=== PATIENT | female | born 1950 | race Caucasian/White ===

== ENCOUNTER 2016-09-12 12:48 | Outpatient (CLI) ==
[2016-09-12 15:42] LABS: BASOPHILS % (AUTO) 0.4 % (0.0-3.0); EOSINOPHILS # (AUTO) 0.2 K/ul (0.0-0.7); EOSINOPHILS % (AUTO) 2.3 % (0.0-7.0); HEMATOCRIT 43.7 % (37.0-47.0); HEMOGLOBIN 14.6 g/dl (12.0-16.0); IMMATURE GRANULOCYTE % (AUTO) 0.4 % (0.0-5.0); LYMPHOCYTES # (AUTO) 1.9 K/uL (0.60-3.4); LYMPHOCYTES % (AUTO) 24.9 (10.0-50.0); MEAN CORPUSCULAR HEMOGLOBIN 28.8 pg (27.0-31.0); MEAN CORPUSCULAR HGB CONC 33.4 (31.8-35.4); MEAN CORPUSCULAR VOLUME 86.2 fl (81.0-99.0); MONOCYTES # (AUTO) 0.8 K/uL (0.4-2.0); MONOCYTES % (AUTO) 10.1 (0-10); NEUTROPHILS # (AUTO) 4.6 K/ul (2.0-6.9); NEUTROPHILS % (AUTO) 61.9; PLATELET COUNT 268 10^3/uL (140-440); RED BLOOD COUNT 5.07 10^6/ul (4.20-5.40); WHITE BLOOD COUNT 7.42 K/ul (4.6-10.2)
[2016-09-12 16:21] LABS: ALBUMIN 3.6 g/dL (3.4-5.0); ALBUMIN/GLOBULIN RATIO 1.03; BILIRUBIN,TOTAL 0.36 mg/dL (0.00-1.20); CALCIUM 9.8 mg/dL (8.2-10.2); CHOL/HDL RATIO 4.3 (4.5-5.5); CREATININE 0.7 mg/dL (0.60-1.30); TOTAL PROTEIN 7.1 g/dL (5.8-8.1)
== END 2016-09-12 12:49 | disposition home or self-care (01) ==
LOC: LAB 12:48
PROVIDERS: ATTEND Emergency Medicine
DX: J40 Bronchitis, not specified as acute or chronic (principal); G25.0 Essential tremor; E66.9 Obesity, unspecified
CPT/HCPCS: 36415; 80053; 80061; 84443; 85025

== ENCOUNTER 2016-09-18 08:31 | Outpatient (CLI) ==
--- NOTE | 2016-09-18 09:39 | CT ---
EXAM: CT of the chest without contrast History: Bronchitis. Technique: Multiplanar CT images through the chest were obtained without the administration of IV c ontrast Findings: Coronary calcifications. Heart size is normal. No pericardial effusion. No pathologica lly enlarged thoracic lymph nodes. Great vessels are unremarkable. No consolidation. No pleural f luid and no pneumothorax. No suspicious lung masses or lung nodules. Within the visualized upper abdomen, no acute findings. No acute osseous abnormalities. Impression: 1. No acute intrathoracic process. 2. Coronary artery disease.
== END 2016-09-18 08:32 | disposition home or self-care (01) ==
LOC: RAD 08:31
PROVIDERS: ATTEND Emergency Medicine
DX: Z12.31 Encounter for screening mammogram for malignant neoplasm of breast (principal); J40 Bronchitis, not specified as acute or chronic; F17.200 Nicotine dependence, unspecified, uncomplicated

== ENCOUNTER 2016-10-01 12:20 | Outpatient (CLI) | payer OTHER | END 2016-10-01 12:21 | disposition home or self-care (01) | LOC: CAR 12:20 | PROVIDERS: ATTEND Emergency Medicine | DX: J40 Bronchitis, not specified as acute or chronic (principal) ==

== ENCOUNTER 2017-02-07 12:57 | Outpatient (CLI) ==
[2017-02-07 13:33] LABS: BASOPHILS % (AUTO) 0.4 % (0.0-3.0); EOSINOPHILS # (AUTO) 0.1 K/ul (0.0-0.7); EOSINOPHILS % (AUTO) 1.3 % (0.0-7.0); HEMATOCRIT 43.5 % (37.0-47.0); IMMATURE GRANULOCYTE % (AUTO) 0.3 % (0.0-5.0); LYMPHOCYTES % (AUTO) 26.1 (10.0-50.0); MEAN CORPUSCULAR HEMOGLOBIN 29.7 pg (27.0-31.0); MEAN CORPUSCULAR HGB CONC 34.5 (31.8-35.4); MEAN CORPUSCULAR VOLUME 86.1 fl (81.0-99.0); MONOCYTES # (AUTO) 0.6 K/uL (0.4-2.0); NEUTROPHILS # (AUTO) 4.9 K/ul (2.0-6.9); NEUTROPHILS % (AUTO) 63.9; PLATELET COUNT 259 10^3/uL (140-440); RED BLOOD COUNT 5.05 10^6/ul (4.20-5.40); WHITE BLOOD COUNT 7.59 K/ul (4.6-10.2)
[2017-02-07 14:07] LABS: ALBUMIN 3.4 g/dL (3.4-5.0); ALBUMIN/GLOBULIN RATIO 0.83; ANION GAP 10.9; BILIRUBIN,TOTAL 0.6 mg/dL (0.00-1.20); BUN/CREATININE RATIO 17.14; CALCIUM 10.2 mg/dL (8.2-10.2); CHOL/HDL RATIO 3.1 (4.5-5.5); CREATININE 0.7 mg/dL (0.60-1.30); PHOSPHORUS 3.5 mg/dL (2.8-4.1); POTASSIUM 3.9 mmol/L (3.5-5.10); TOTAL PROTEIN 7.5 g/dL (5.8-8.1)
== END 2017-02-07 12:58 | disposition home or self-care (01) ==
LOC: LAB 12:57
PROVIDERS: ATTEND Emergency Medicine
DX: G25.0 Essential tremor (principal); M47.26 Other spondylosis with radiculopathy, lumbar region; E66.9 Obesity, unspecified; E78.5 Hyperlipidemia, unspecified
CPT/HCPCS: 36415; 80053; 80061; 84100; 84443; 85025

== ENCOUNTER 2017-06-06 07:37 | Outpatient (CLI) ==
--- NOTE | 2017-06-06 09:34 | MRI ---
EXAM: MRI left wrist without contrast. HISTORY: Knot on left wrist. Marked. Diagnosed ganglion left wrist. Questionable left wrist surge ry years ago. TECHNIQUE: Using a local extremity coil on a high field strength magnet multiplanar multisequence ma gnet resonance imaging was attempted of the left wrist without intravenous or intra-articular gadolin ium contrast. A marker was placed over the volar radial aspect of the left wrist at the radiocarpal j oint space in the patient's reported area of symptomatology. Overall examination is of markedly limited diagnostic quality secondary to decreased [id number]-cj-mcyrm/ resolution as well as extensive motion degradation despite repeat imaging.. FINDINGS: I do not have prior radiographs of the left wrist available for comparison at the time of this dictation. The alignment of the left wrist shows no dislocation . There is a radial subluxation first metacarpa l with respect to the trapezium. Markedly severe degenerative arthrosis/osteoarthrosis scaphoid trap ezium trapezoid articulation as well as first carpometacarpal joint. Specifically over the first car pometacarpal joint there is extensive joint centered bone remodeling with osteophyte formation and shawn int centered bone marrow edema. Osteoarthrosis radiocarpal joint as well. Question tiny fibrous/car tilaginous lesion capitate. Areas of subchondral remodeling/edema/cyst formation over the proximal l unate and triquetrum. The central triangular fibrocartilage disc thinned centrally over the more radi al side. This may be degenerative. A marker placed over the volar/radial sided soft tissues at the radiocarpal joint space level. Direc tly underlying there is dark T1 bright T2 signal intensity lobulated focus lying 3 mm deep to the ski n surface with extension deep to the level of the radiocarpal joint space level. This area measures upwards of 20 mm in length extending proximal and approximately 11 mm transverse by 11 mm deep. The carpal tunnel and its contents as well as overlying flexor retinaculum within normal limit in appeara nce. Extensor compartments I - intact without overt tenosynovitis.. IMPRESSION: Overall examination is of markedly limited diagnostic quality secondary to decreased sig [id number]/resolution as well as extensive motion degradation despite repeat imaging. Marker over the volar/radial sided soft tissues at the radiocarpal joint space level. Directly under lying 20 mm dark T1 bright T2 signal intensity lobulated focus. Question synovial/ganglion cyst(s). Questionable extension to the radiocarpal joint space level. Recommend further characterization with color Doppler sonography if aspiration/resection is clinically indicated. Radial subluxation first metacarpal with respect to the trapezium with markedly severe end-stage dege nerative arthrosis/osteoarthrosis. Involvement of the scaphoid trapezium trapezoid articulation as w ell. Osteoarthrosis radiocarpal joint as well. Thinned central more radial sided attachment of the triangular fibrocartilage disc. Question degener ative. Recommendation is obtainment and correlation with plain film radiographs of the left wrist as none ar e available for comparison at the time of this dictation.
== END 2017-06-06 07:38 | disposition home or self-care (01) ==
LOC: RAD 07:37
PROVIDERS: ATTEND Emergency Medicine
DX: M67.432 Ganglion, left wrist (principal)

== ENCOUNTER 2017-08-26 09:04 | Outpatient (CLI) | END 2017-08-26 09:05 | disposition home or self-care (01) | LOC: RHC-LAB 09:04 | PROVIDERS: ATTEND Emergency Medicine | DX: G25.0 Essential tremor (principal); E66.9 Obesity, unspecified; E78.5 Hyperlipidemia, unspecified; M47.26 Other spondylosis with radiculopathy, lumbar region | CPT/HCPCS: 36415; 80053; 80061; 84443; 85025 ==

== ENCOUNTER 2017-11-25 08:35 | Outpatient (CLI) ==
--- NOTE | 2017-11-25 10:04 | DI ---
EXAM: Two views of the chest. History: Smoker. Comparison: Heart size is normal. No focal consolidation. No appreciable pleural fluid and no pneum othorax. No acute osseous abnormalities. Impression: No acute cardiopulmonary process
--- NOTE | 2017-11-26 10:28 | MAMMO ---
EXAM: Right digital screening mammogram (2-D and 3-D) History: Screening, history of left mastectomy Comparison: Right mammogram 09/18/2016 Findings: MLO and CC views of the right breast demonstrate scattered fibroglandular breast parenchyma . Stable benign right breast calcifications and stable benign right breast nodular densities. No de veloping masses and no suspicious microcalcifications. CAD was reviewed by the radiologist. Tomosynt hesis was performed. Impression: Stable benign right mammogram. Recommend followup routine screening mammography in 1 ye ar. BIRADS 2
== END 2017-11-25 08:36 | disposition home or self-care (01) ==
LOC: RAD 08:35
PROVIDERS: ATTEND Internal Medicine
DX: Z12.31 Encounter for screening mammogram for malignant neoplasm of breast (principal); E78.5 Hyperlipidemia, unspecified; E55.9 Vitamin D deficiency, unspecified; F17.210 Nicotine dependence, cigarettes, uncomplicated; Z90.12 Acquired absence of left breast and nipple; I10 Essential (primary) hypertension
CPT/HCPCS: 36415; 80053; 80061; 82306; 83036; 84439; 84443; 85025

== ENCOUNTER 2018-08-17 08:16 | Outpatient (CLI) ==
--- NOTE | 2018-08-17 09:12 | DI ---
EXAM: Two views of the chest. History: Cough. Comparison: Chest radiograph 11/25/2017 Findings: Heart size is upper limits of normal. Central bronchial wall thickening. No focal consol idation. No appreciable pleural fluid and no pneumothorax. No acute osseous abnormalities. Impression: Central bronchial wall thickening but no consolidated pneumonia.
--- NOTE | 2018-08-17 10:03 | CT ---
EXAM: CT of the lumbar spine without contrast History: Lower back pain. Technique: Multiplanar CT images through the lumbar spine were obtained without the administration o f IV contrast Findings: The visualized lung bases are clear. Atherosclerotic vascular calcifications are mild. C olonic diverticulosis. No acute fracture or subluxation of the lumbar spine. Mild to moderate multilevel disc space narrowi ng with endplate sclerosis and a few prominent osteophytes. Six lumbar type vertebral bodies. T12-L1: No significant bony central canal stenosis or bony neural foraminal narrowing. L1-L2: No significant bony central canal stenosis or bony neural foraminal narrowing. L2-L3: No significant bony central canal stenosis or bony neural foraminal narrowing. L3-L4: No significant bony central canal stenosis or bony neural foraminal narrowing. L4-L5: No significant bony central canal stenosis or bony neural foraminal narrowing. L5, L6: No significant bony central canal stenosis. Right lateral disc protrusion effacing the left lateral recess. There may be compromise of the right exiting nerve root. Moderate bilateral bony n eural foraminal narrowing secondary to ligamentous and facet hypertrophy. L6-S1: No significant bony central canal stenosis or bony neural foraminal narrowing. Impression: 1. No acute osseous abnormality of the lumbar spine. 2. Level by level analysis as detailed above and no significant at L5-L6 with possible compromise of the right exiting nerve root. Recommend further evaluation with MRI of the lumbar spine. 3. Colonic diverticulosis
--- NOTE | 2018-08-17 11:27 | MRI ---
EXAM: MRI of the left shoulder without contrast COMPARISON: Chest radiographs 08/17/2018. HISTORY: Bruising of the left shoulder. No known injury. TECHNIQUE: Multiplanar noncontrast MR images of the left shoulder were acquired using a 1.2 [place] ma gnet. The submitted images are moderately limited by patient motion artifact, overall limiting anato alverto detail. The axial proton density sequence was repeated. FINDINGS: No recent radiographs of the left shoulder are available for comparison and radiographic c orrelation is recommended. There is marked supraspinatus, infraspinatus and subscapularis tendinosis. Marked thinning and artic ular surface irregularity of the insertional fibers of the supraspinatus anteriorly measuring 0.9 x 0 .8 cm extent consistent with a tear with near full-thickness and suspected irregular full-thickness c omponents. Fluid in the overlying subacromial/subdeltoid bursa. Less extensive partial-thickness/ri m rent tear involving the more posterior insertional fibers of the infraspinatus as well as bursal chin rface fraying/partial-thickness bursal surface tear more proximally. The critical zone through the l evel of the acromion. Thinning of the distal subscapularis related to a partial-thickness tear with intact fibers identified. Moderate atrophy of the supraspinatus and infraspinatus with low-level int ramuscular edema involving the supraspinatus. Reactive marrow edema with degenerative spurring along the greater tuberosity attachment rotator cuff. Limited assessment glenoid labrum on this non arthrographic, motion limited study. Hyperintense sign al along the superior and posterior labrum with focal hyperintense signal along the chondrolabral lorri ction concerning for a tear at that level with underlying intrasubstance degeneration. Moderate yossi ohumeral joint osteoarthrosis. Moderate joint effusion. No acute fracture dislocation. Mildly hete rogeneous signal along the bone marrow with confluent regions of inversion recovery hyperintense/T1 h ypointense signal suggesting nonspecific red marrow reconversion/hyperplasia. The long head of the biceps is located within the bicipital groove with tendinosis/partial tear and t enosynovitis. There are marked hypertrophic degenerative changes of the acromioclavicular joint. No evidence of an os acromiale or abnormal widening of the acromioclavicular joint space. There is a type 3 acromion with mild anterior and lateral downsloping of the acromion. Moderate fatty infiltration of the delto id muscle. IMPRESSION: 1. Marked rotator cuff tendinosis. Tear of the supraspinatus with near full-thickness component and suspected irregular full-thickness component involving the anterior insertional fibers as described. Fluid in the overlying subacromial/subdeltoid bursa. Partial tear of the subscapularis. 2. Muscle atrophy most pronounced along the supraspinatus, infraspinatus and deltoid. 3. Intrasubstance degeneration and suspected superimposed tear of the superior to posterior glenoid labrum on this non arthrographic study. 4. Moderate glenohumeral joint osteoarthrosis. Joint effusion, nonspecific. 5. Tendinosis/partial tear and tenosynovitis involving the long head of the biceps. 6. Heterogeneous signal involving the bone marrow which may represent red marrow reconversion/hyperp lasia. This is a nonspecific finding which can be seen in the setting of anemia, tobacco use, obesit y and other processes. Whole body bone scan could be considered in order to exclude a metabolically active process in a high risk patient.
== END 2018-08-17 08:17 | disposition home or self-care (01) ==
LOC: RAD 08:16
PROVIDERS: ATTEND Internal Medicine
DX: M25.512 Pain in left shoulder (principal); R05 Cough; M54.5 Low back pain

== ENCOUNTER 2018-08-24 11:30 | Outpatient (CLI) ==
--- NOTE | 2018-08-25 17:10 | MRI ---
MRI of the lumbar spine HISTORY: Back pain. Abnormal CT of the lumbar spine. COMPARISON: CT 08/17/2018. PROCEDURE: Multiplanar, multisequence MRI protocol including sagittal T1-weighted, sagittal T2-weigh shanae, sagittal inversion recovery, coronal T2-weighted, axial T1-weighted and axial T2-weighted sequen isaias. FINDINGS: There are five non-rib bearing lumbar-type vertebrae.Note that the previous CT report descr ibed six non-rib bearing lumbar vertebrae. Vertebral alignment demonstrates normal lordosis and a ap proximately 15 degrees levoconvex scoliosis centered about L2-3. There is an approximately 3 mm ante rolisthesis of L5 with respect to S1 Vertebral body height is well maintained. Marrow signal is mode stly heterogeneous but otherwise unremarkable. There is a probable intraosseous hemangioma in the elena dy of S1. The intervertebral discs demonstrate evidence of desiccation primarily from L3-4 through L 5-S1. The conus medullaris appears normal in position and configuration and signal. The caliber of the spinal canal is intrinsically within normal limits. The prevertebral and paraspinous soft tissue s appear to be within normal limits. Segmental analysis: T12-L1: There is no significant disc bulge at this level. The spinal canal is not significantly narr owed. The subarticular spaces and lateral recesses are not significantly narrowed. The neural beverley lulu are not stenosed. The conus crosses this level. L1-L2: There is no significant disc bulge at this level. The spinal canal is not significantly narro wed. The subarticular spaces and lateral recesses are not significantly narrowed. The neural forami na are not stenosed. The conus terminates above this level. L2-L3: There is no significant disc bulge at this level. The spinal canal is not significantly narro wed. The subarticular spaces and lateral recesses are not significantly narrowed. The neural forami na are not stenosed. L3-L4: There is a minimal disc bulge at this level. The AP diameter thecal sac is reduced about 9 mm by combination of disc, facet hypertrophy, thickening ligamenta flava and modest dorsal epidural lip omatosis. The subarticular spaces and lateral recesses are not significantly narrowed. There is mil d foraminal stenosis due to facet arthropathy disc intrusion. L4-L5: There is a minimal broad-based disc bulge at this level. There is modest triangulation of the canal with reduction of the AP diameter of the thecal sac to about 9 mm by a combination of disc, fa cet hypertrophy thickening ligamenta flava and minimal dorsal epidural lipomatosis. The subarticular spaces and lateral recesses are not significantly narrowed. There is mild right foraminal stenosis due to facet arthropathy and disc intrusion. L5-S1: There is a broad-based pseudodisc bulge and a small right paramedian protrusion impressing julia tral thecal sac at this level. The spinal canal is not significantly narrowed. The protrusion appea rs to abut but not displace or compress the right S1 nerve root. The neural foramina are not stenose d. IMPRESSION: 1. The lumbar vertebrae are generally normal in height and signal. There is a modest Grade I andres listhesis of L5 with respect to S1. There is a modest levoconvex scoliosis centered at L2-3. The lo wer three intervertebral discs show evidence of desiccation. 2. There is mild central canal stenosis at L3-4 and L4-5. There is a small right paramedian protrus ion at L5 S1 which appears to abut but not displace compress the right S1 nerve root. This does not appear likely to be symptomatic but clinical correlation is suggested. 3. There is mild foraminal stenosis at L3-4 and mild right foraminal stenosis at L4-5, details provi ded in the report at the individual levels.
== END 2018-08-24 11:31 | disposition home or self-care (01) ==
LOC: RAD 11:30
PROVIDERS: ATTEND Internal Medicine
DX: M54.9 Dorsalgia, unspecified (principal); R93.7 Abnormal findings on diagnostic imaging of other parts of musculoskeletal system